=== PATIENT | female | born 1990 | race Caucasian/White ===

== ENCOUNTER 2022-03-15 10:42 | Inpatient (IN) | payer BC ==
[2022-03-15] MEDS ORDERED: Ondansetron 4 MG/2 ML SDV IVPUSH PRN (11:22)
[2022-03-15] MEDS ORDERED: Sodium Chloride 0.9% 10 ML Syringe FLUSH PRN (11:22)
[2022-03-15] MEDS ORDERED: Nalbuphine HCl 10 MG/ 1ML Amp IVPUSH PRN (11:22)
[2022-03-15] MEDS ORDERED: Oxytocin/Lactated Ringers 10 UNIT/1,000 ML BAG IV SCH ×2 (11:30)
[2022-03-15] MEDS ORDERED: Labetalol 100 MG/20 ML MDV IVPUSH ONE ×2 (12:13→12:24)
[2022-03-15] MEDS ORDERED: Calcium Gluconate 10% 1 GM/10 ML SDV IV PRN (12:25)
[2022-03-15] MEDS ORDERED: Magnesium Sulfate/Water 6 GM in Premix Bag 1 BAG IV ONE (12:25)
[2022-03-15] MEDS ORDERED: Magnesium Sulfate/Water 40 GM/1,000 ML BAG IV SCH (12:30)
[2022-03-15] MEDS ORDERED: Magnesium Sulfate/Water 50 ML ONE (12:38)
[2022-03-15] MEDS: Lactated Ringers 1,000 ML IV SCH (12:46)
[2022-03-15] MEDS ORDERED: Magnesium Sulfate/Water 4 GM in Premix Bag 1 BAG IV STA (12:50)
[2022-03-15] MEDS ORDERED: fentaNYL 100 MCG/2 ML SDV EPIDUR PRN (13:38)
[2022-03-15] MEDS ORDERED: diphenhydrAMINE 50 MG/ML SDV IVPUSH PRN (13:38)
[2022-03-15] MEDS ORDERED: ePHEDrine 50 MG/ML SDV IVPUSH PRN (13:38)
[2022-03-15] MEDS: Bupivacaine/fentaNYL/NS 100 ML Bag EPIDUR PRN (13:49)
[2022-03-15] MEDS ORDERED: Oxytocin/Lactated Ringers 20 UNIT/1,000 ML BAG IV SCH (19:30)
[2022-03-15] MEDS ORDERED: Sodium Chloride 0.9% 10 ML Syringe FLUSH SCH (21:00)
[2022-03-16] MEDS ORDERED: Phenylephrine/Normal Saline 100 MCG/ML 10 ML Syringe ONE
[2022-03-16] MEDS ORDERED: Bupivacaine 0.25% 10 ML SDV ONE
[2022-03-16] MEDS: Bupivacaine/fentaNYL/NS 100 ML Bag EPIDUR PRN (00:06)
[2022-03-16] MEDS: Lactated Ringers 1,000 ML IV SCH ×2 (00:19→15:51)
[2022-03-16] MEDS ORDERED: Witch Hazel Medicated Pads 40/Jar TOP PRN (04:10)
[2022-03-16] MEDS ORDERED: Benzocaine/Menthol 20%-0.5% Spray 78 GM Cannister TOP PRN (04:10)
[2022-03-16] MEDS ORDERED: Ibuprofen 600 MG Tab PO PRN (04:10)
[2022-03-16] MEDS: Docusate Sodium 100 MG Cap PO PRN (06:19)
[2022-03-16] MEDS: Acetaminophen 325 MG Tab PO PRN ×2 (14:04→21:26)
[2022-03-16] MEDS ORDERED: Magnesium Sulfate/Water 40 GM/1,000 ML BAG IV SCH (16:00)
[2022-03-17] MEDS ORDERED: Calcium Carbonate 500 MG Tab.Chew PO PRN (00:53)
[2022-03-17] MEDS: Acetaminophen 325 MG Tab PO PRN ×2 (11:10→21:30)
[2022-03-18] MEDS: Acetaminophen 325 MG Tab PO PRN ×2 (02:03→07:03)
[2022-03-18] MEDS: Docusate Sodium 100 MG Cap PO PRN (08:37)
== END 2022-03-18 16:00 | disposition home or self-care (01) | DRG 560 ==
LOC: JD.OB 10:42 → JD.OBCHECK 10:42 → JD.OB 11:22 → OBSVTOIN 03-16 04:06 → JD.MS 03-16 04:49 → JD.OB 03-16 12:26
PROVIDERS: ADMIT Obstetrics & Gynecology; ATTEND Obstetrics & Gynecology
PROC: 10907ZC Drainage of Amniotic Fluid, Therapeutic from Products of Conception, Via Natural or Artificial Opening (ICD-10-PCS; principal; 2022-03-16)
PROC: 10E0XZZ Delivery of Products of Conception, External Approach (ICD-10-PCS; 2022-03-16)
PROC: 0KQM0ZZ Repair Perineum Muscle, Open Approach (ICD-10-PCS; 2022-03-16)
PROC: 3E0R3BZ Introduction of Anesthetic Agent into Spinal Canal, Percutaneous Approach (ICD-10-PCS; 2022-03-16)
PROC: 3E033VJ Introduction of Other Hormone into Peripheral Vein, Percutaneous Approach (ICD-10-PCS; 2022-03-16)
DX: O14.14 Severe pre-eclampsia complicating childbirth (principal); O48.0 Post-term pregnancy; O77.0 Labor and delivery complicated by meconium in amniotic fluid; O70.1 Second degree perineal laceration during delivery; O90.81 Anemia of the puerperium; D62 Acute posthemorrhagic anemia; O99.344 Other mental disorders complicating childbirth; F41.9 Anxiety disorder, unspecified; Z88.0 Allergy status to penicillin; Z3A.40 40 weeks gestation of pregnancy; Z37.0 Single live birth
CPT/HCPCS: 01967; 36415; 51702; 59025; 59409; 82565; 82570; 83615; 83735; 84156; 84450; 84460; 84520; 84550; 85025; 85027; 86592; 86850; 86900; 86901; A9270-GY; J2370; J2405; J2590; J3010; J3475; J3490; J7120